=== PATIENT | male | born 1960 | race Caucasian/White ===

== ENCOUNTER 2017-02-20 06:34 | Day surgery (SDC) | payer BC ==
[2017-02-20] MEDS ORDERED: Lactated Ringers 1,000 ML IV SCH (06:45)
[2017-02-20] MEDS ORDERED: Propofol 200 MG/20 ML SDV IV ONE (08:00)
[2017-02-20] MEDS ORDERED: Midazolam 1 MG/ML 2 ML SDV IV ONE (08:00)
[2017-02-20] MEDS ORDERED: Lidocaine 2% 100 MG/5 ML Syringe IVPUSH ONE (08:00)
--- NOTE | 2017-02-20 08:31 | PCM.OPNOTE ---
- General Post-Op/Procedure Note Date of Surgery/Procedure: 02/20/17 Operative Procedure(s): egd with bx. c scope Findings: gastroduodenitis esophagitis normal colon Pre Op Diagnosis: Heme + stools Post-Op Diagnosis: gastroduodenitis. esophagitis. normal colon Anesthesia Technique: MAC Primary Surgeon: Filiberto Mckee Anesthesia Provider: Viktor Howard Pathology: stomach, duodenum and distal esophagus. Complications: None Condition: Good Free Text/Narrative:: see dictation
--- NOTE | 2017-02-20 09:47 | OR ---
DATE OF OPERATION: 02/20/2017 SURGEON: Filiberto Mckee MD PROCEDURE PERFORMED: Esophagogastroduodenoscopy with cold forceps biopsy and colonoscopy. PREOPERATIVE DIAGNOSIS: Heme-positive stools. POSTOPERATIVE DIAGNOSIS: Gastroduodenitis, esophagitis, and normal colon. INDICATIONS FOR PROCEDURE: This is a 56-year-old white male, who is referred with the above-mentioned heme-positive stools. He is entirely asymptomatic and because of this, was offered and accepted, both upper and lower endoscopy. DESCRIPTION OF OPERATION: After an excellent IV sedation was administered, the bite block was inserted. The flexible endoscope was passed without difficulty down the patient's esophagus into the stomach. The stomach was insufflated, scope was passed through the pylorus to the second portion of the duodenum and slowly withdrawn. The following findings were noted. Duodenum first portion demonstrates duodenitis, biopsies were taken. Stomach, diffuse gastritis. Biopsies were taken. Distal esophagus, GE junction measured approximately 40 cm and had several patches of inflammation, biopsies were taken. The remainder of the esophageal exam was unremarkable. The stomach was deflated, and the scope was removed. Our attention was then turned to the colon. Digital rectal exam was performed. No marked abnormality was noted. Flexible colonoscope was inserted and advanced without difficulty to the cecum. The prep was excellent. The following findings were noted. Ascending colon, unremarkable. Transverse colon, unremarkable. Descending colon, unremarkable. Sigmoid and rectum, unremarkable. Colon was deflated as the scope was removed. The patient tolerated the procedure well and was taken to recovery in good condition. /[id number] /[email or web address]
[2017-02-20 10:12] VITALS: BP 132/79
== END 2017-02-20 09:39 | disposition home or self-care (01) ==
LOC: FB.SDS 06:34
PROVIDERS: ATTEND Surgery
DX: K29.80 Duodenitis without bleeding (principal); K29.50 Unspecified chronic gastritis without bleeding; K22.70 Barrett's esophagus without dysplasia; K20.9 Esophagitis, unspecified
CPT/HCPCS: 43239; 45378; 82962; 88305; 88313; 88342; J2250; J2704; J7120